=== PATIENT | female | born 1945 | race Asian ===

== ENCOUNTER 2018-01-16 16:09 | Inpatient (IN) | payer MEDICARE, BC ==
[2018-01-16 16:54] LABS: #Basophils 0.1 thou/uL (0.0-0.2); #Eosinphils 0.2 thou/uL (0.0-0.7); #Lymphocytes 1.7 thou/uL (1.20-3.40); #Monocytes 0.3 thou/uL (0.11-0.59); #Neutrophils 10.8 thou/uL (1.40-6.50); %Basophils 0.4 % (0.0-1.0); %Eosinophils 1.7 % (0.0-10.0); %Lymphocytes 12.9 % (21.0-51.0); %Monocytes 2.4 % (0.0-10.0); %Neutrophils 82.6 % (42.0-75.0); Hemoglobin 15.7 g/dL (12.0-16.0); Mean Corpuscular HGB CONC 33.8 g/dL (32.0-36.0); Mean Corpuscular Hemoglobin 28.7 pg (27.0-31.0); Mean Corpuscular Volume 84.8 fl (81.0-99.0); Mean Platelet Volume 9.1 fL (7.4-10.4); Platelet Count 205 thou/uL (130-400); RBC Distribution Width 12.3 % (11.5-14.5); Red Blood Cell (RBC) Count 5.46 mill/uL (4.20-5.40); White Blood Cell (WBC) Count 13.1 thou/uL (4.8-10.8)
[2018-01-16 17:14] LABS: ALT (SGPT) 11 U/L (8-55); AST (SGOT) 25 U/L (5-34); Albumin 4.2 g/dL (3.4-4.8); Alkaline Phosphatase 78 U/L (40-150); Anion Gap 17 mmol/L (10-20); BUN (Urea Nitrogen) 23 mg/dL (9.8-20.1); Bilirubin, Total 0.7 mg/dL (0.2-1.2); Calc. Creatinine Clearance 0 mL/min (70-130); Calcium 10.1 mg/dL (7.8-10.44); Carbon Dioxide 23 mmol/L (23-31); Chloride 104 mmol/L (98-107); Estimated GFR-MDRD 42; Globulin 4.3 g/dL (2.4-3.5); Glucose 145 mg/dL (83-110); Lipase 18 U/L (8-78); Potassium 4.5 mmol/L (3.5-5.1); Protein, Total 8.5 g/dL (6.0-8.3); Sodium 139 mmol/L (136-145)
[2018-01-16 17:18] LABS: CKMB 0.9 ng/mL (0-6.6); Troponin I Less than 0.010 ng/mL (< 0.028)
[2018-01-16] MEDS ORDERED: Ondansetron ODT 4 MG TAB ONE (17:19)
[2018-01-16] MEDS ORDERED: Pantoprazole 40 MG VIAL ONE (18:33)
[2018-01-16 18:45] LABS: Bilirubin Negative (Negative); Blood, Urine Negative (Negative); Clarity CLEAR (Clear); Glucose, Urine (Dipstick) Negative (Negative); Leukocyte Negative (Negative); Nitrite Negative (Negative); Protein, Urine (Dipstick) Trace mg/dL (Neg-Trace); Specific Gravity, Urine 1.013 (1.002-1.036); Urobilinogen 0.2 mg/dL (0.2-1.0); pH, Urine 6.5 (5.0-9.0)
[2018-01-16] MEDS ORDERED: Ondansetron HCl/PF 4 MG/2 ML Vial IVP PRN (22:03)
[2018-01-16] MEDS ORDERED: Ondansetron ODT 4 MG TAB SL PRN (22:03)
[2018-01-16] MEDS ORDERED: Promethazine HCl 12.5 MG in Sodium Chloride 0.9% 50 ML IVPB PRN (22:04)
[2018-01-16] MEDS: Sodium Chloride 0.9% 1,000 ML IV SCH (22:12)
[2018-01-16 23:07] VITALS: BMI 27.6
[2018-01-17] MEDS ORDERED: Guaifenesin DM 100-10/5 ML UDCUP PO PRN (01:50)
[2018-01-17] MEDS ORDERED: Acetaminophen 325 MG TAB PO PRN (01:50)
[2018-01-17] MEDS ORDERED: Ondansetron HCl/PF 4 MG/2 ML Vial IVP PRN (01:50)
[2018-01-17] MEDS ORDERED: Calcium Carbonate 500 MG ChewTAB PO PRN (01:50)
[2018-01-17] MEDS ORDERED: Mag-Al 1200 mg/1200 mg/30 ML UDCUP PO PRN (01:50)
[2018-01-17] MEDS ORDERED: Morphine 4 MG/ML VIAL SLOW IVP PRN (01:50)
[2018-01-17] MEDS: predniSONE 50 MG TAB PO SCH ×4 (02:22→18:08)
[2018-01-17 02:46] LABS: #Lymphocytes 3.6 thou/uL (1.20-3.40); #Monocytes 0.7 thou/uL (0.11-0.59); #Neutrophils 10.9 thou/uL (1.40-6.50); %Basophils 0.2 % (0.0-1.0); %Eosinophils 0.3 % (0.0-10.0); %Lymphocytes 23.5 % (21.0-51.0); %Monocytes 4.3 % (0.0-10.0); %Neutrophils 71.7 % (42.0-75.0); Mean Corpuscular HGB CONC 33.6 g/dL (32.0-36.0); Mean Corpuscular Hemoglobin 28.3 pg (27.0-31.0); Mean Corpuscular Volume 84.2 fl (81.0-99.0); Mean Platelet Volume 8.6 fL (7.4-10.4); Platelet Count 197 thou/uL (130-400); RBC Distribution Width 12.4 % (11.5-14.5); Red Blood Cell (RBC) Count 5.29 mill/uL (4.20-5.40); White Blood Cell (WBC) Count 15.2 thou/uL (4.8-10.8)
[2018-01-17 03:19] LABS: ALT (SGPT) 8 U/L (8-55); AST (SGOT) 19 U/L (5-34); Alkaline Phosphatase 70 U/L (40-150); Anion Gap 15 mmol/L (10-20); BUN (Urea Nitrogen) 20 mg/dL (9.8-20.1); Bilirubin, Total 0.8 mg/dL (0.2-1.2); Calc. Creatinine Clearance 50 mL/min (70-130); Calcium 9.8 mg/dL (7.8-10.44); Carbon Dioxide 23 mmol/L (23-31); Chloride 107 mmol/L (98-107); Estimated GFR-MDRD 47; Glucose 120 mg/dL (83-110); Potassium 4.6 mmol/L (3.5-5.1); Sodium 140 mmol/L (136-145)
[2018-01-17] MEDS: metroNIDAZOLE 500 MG in Premix Bag 1 BAG IVPB SCH ×3 (05:12→21:43)
--- NOTE | 2018-01-17 06:37 | HP ---
REASON FOR ADMISSION: Abdominal pain with nausea and vomiting and one episode of diarrhea, possible gastroenteritis. HISTORY OF PRESENT ILLNESS: The patient gives history of vomiting multiple times along with abdominal pain around the umbilical area. This was a 5-6/10 in intensity and progressively got worse. The patient had 3 soft stools yesterday, but no diarrhea as such, but had one episode of watery diarrhea on arrival in the ER here. She tried taking Prilosec but threw up the pill as well. She has some cough with expectoration of yellow sputum. No fever as such. The patient thinks she got upper respiratory infection from one of her grandkids who had come to visit her. PAST MEDICAL AND SURGICAL HISTORY: Hypertension, history of hysterectomy. CURRENT MEDICATIONS: Takes lisinopril 30 mg p.o. q.a.m. ALLERGIES: Allergic to SHELLFISH. PERSONAL HISTORY: Does not abuse alcohol or drugs. No history of smoking. FAMILY HISTORY: Both parents lived up to 70s and of old age. CODE STATUS: FULL. She lives with her . REVIEW OF SYSTEMS: The following complete review of systems was negative, unless otherwise mentioned in the HPI or below: Constitutional: Weight loss or gain, ability to conduct usual activities. Skin: Rash, itching. Eyes: Double vision, pain. ENT/Mouth: Nose bleeding, neck stiffness, pain, tenderness. Cardiovascular: Palpitations, dyspnea on exertion, orthopnea. Respiratory: Shortness of breath, wheezing, cough, hemoptysis, fever or night sweats. Gastrointestinal: Poor appetite, abdominal pain, heartburn, nausea, vomiting, constipation, or diarrhea. Genitourinary: Urgency, frequency, dysuria, nocturia. Musculoskeletal: Pain, swelling. Neurologic/Psychiatric: Anxiety, depression. Allergy/Immunologic: Skin rash, bleeding tendency. PHYSICAL EXAMINATION: GENERAL: The patient is a 72-year-old female who is currently not in any acute distress. VITAL SIGNS: Blood pressure 180/110, pulse 90 per minute, respiratory rate 16 per minute, temperature 98.2 degrees Fahrenheit, saturating 96% on room air. NECK: Supple, no elevated JVD. HEENT: Eyes: Extraocular muscles intact. Pupils reacting to light. Oral cavity: Mucous membranes are moist. No exudates or congestion. CARDIOVASCULAR SYSTEM: S1, S2 heard. Regular rhythm. RESPIRATORY: Air entry 1+ bilaterally. No rales or rhonchi. ABDOMEN: Abdomen is soft. There is mild tenderness around the umbilicus. No Valderrama sign. No rigidity or guarding. Bowel sounds are heard. EXTREMITIES: No peripheral edema or calf tenderness. VASCULAR SYSTEM: Peripheral pulses 1+ bilateral, no ischemic ulcerations or gangrene. CENTRAL NERVOUS SYSTEM: No gross focal deficits seen. The patient is alert, awake, oriented well. PSYCHIATRIC SYSTEM: The patient's mood is euthymic. No hallucinations or delusions. LABORATORY AND X-RAY FINDINGS: White count of 13, H and H 15 and 46, platelet count 205 with 82% neutrophils. Electrolytes are stable. BUN 23, creatinine 1.25. Serum glucose 145. Liver enzymes are within normal limits. First set of cardiac enzymes negative. Albumin is 4.2, lipase is 18. CLINICAL IMPRESSION AND PLAN: The patient will be under observation on medical floor for what appears to be gastroenteritis versus acute abdomen. The patient is allergic to SHELLFISH and is being premedicated for CT with contrast of the abdomen and pelvis. We will gently hydrate her on normal saline at 75 mL per hour. She will be on morphine p.r.n. for pain. Stool cultures will be obtained including C. diff. She will be on Cipro and Flagyl for now. Based on the CAT scan findings, further consultations will be requested. We will also obtain viral respiratory pathogen PCR in view of her current cough with expectoration of yellow sputum. Blood cultures have been obtained in the ER as well. The patient's symptoms were to get worse or if her CAT scan shows acute findings, the patient will be switched over to inpatient status. She appears to be in moderate dehydration as well with intractable nausea and vomiting. Please note I have seen and examined patient on 01/16/2018. STANLEY
[2018-01-17] MEDS: Albuterol Sulfate 2.5 mg/3 ml Neb NEB SCH ×3 (08:07→19:18)
[2018-01-17] MEDS: Famotidine 20 MG TAB PO SCH (09:10)
[2018-01-17] MEDS: Enoxaparin Sodium 40 MG/0.4 ML SYRINGE SC SCH (09:46)
--- NOTE | 2018-01-17 11:07 | PDOC.PN ---
- Subjective Encounter Start Date: 01/17/18 Encounter Start Time: 11:09 Patient seen and examined following admission for acute abdominal pain, nausea, vomiting and diarrhea. Improved today. CT abdomen pending. - Objective Resuscitation Status: Resuscitation Status FULL:Full Resuscitation Vital Signs & Weight: Vital Signs (12 hours) Temp Pulse Resp BP BP Pulse Ox 01/17/18 08:01 98.5 F 71 16 106/58 L 94 L 01/17/18 08:00 98.5 F 71 16 106/58 L 94 L 01/17/18 04:56 99.2 F 77 18 110/55 L 95 Weight Weight 155 lb I&O: 01/16/18 01/17/18 01/18/18 06:59 06:59 06:59 Intake Total 1325 Balance 1325 Result Diagrams: 01/17/18 02:30 01/17/18 02:30 Phys Exam - Physical Examination Constitutional: NAD HEENT: PERRLA, moist MMs, sclera anicteric, oral pharynx no lesions Neck: no JVD, supple, full ROM Respiratory: no wheezing, no rales, no rhonchi, clear to auscultation bilateral Cardiovascular: RRR, no significant murmur, no rub Gastrointestinal: soft, non-tender, no distention, positive bowel sounds Musculoskeletal: no edema, pulses present Neurological: non-focal, moves all 4 limbs Psychiatric: normal affect, A&O x 3 Dx/Plan (1) Acute abdominal pain Code(s): R10.9 - UNSPECIFIED ABDOMINAL PAIN Status: Acute Comment: Likely gastroenteritis. Stable. f/u CT abdomen . (2) Nausea vomiting and diarrhea Code(s): R11.2 - NAUSEA WITH VOMITING, UNSPECIFIED; R19.7 - DIARRHEA, UNSPECIFIED Status: Acute (3) PHILIP (acute kidney injury) Code(s): N17.9 - ACUTE KIDNEY FAILURE, UNSPECIFIED Status: Acute (4) HTN (hypertension) Code(s): I10 - ESSENTIAL (PRIMARY) HYPERTENSION Status: Chronic Qualifiers: Hypertension type: essential hypertension Qualified Code(s): I10 - Essential (primary) hypertension - Plan cont current plan of care, continue antibiotics, out of bed/ambulate, DVT proph w/lovenox f/u CT abdomen, stool studies Continue Hydration Review of Systems - Review of Systems Gastrointestinal: Nausea, Vomiting, Abdominal Pain, Diarrhea - Medications/Allergies Allergies/Adverse Reactions: Allergies Allergy/AdvReac Type Severity Reaction Status Date / Time shellfish derived Allergy oral Verified 01/16/18 23:26 itching, swelling Medications: Current Medications Acetaminophen (Tylenol) 650 mg PO Q4H PRN PRN Reason: Headache/Fever or Pain Al Hydroxide/Mg Hydroxide (Maalox) 30 ml PO Q6H PRN PRN Reason: Heartburn or Indigestion Albuterol Sulfate (Ventolin) 2.5 mg NEB [id number] [facility] Last Admin: 01/17/18 08:07 Dose: Not Given Calcium Carbonate (Tums) 1,000 mg PO Q4H PRN PRN Reason: Heartburn or Indigestion Diphenhydramine HCl (Benadryl) 50 mg PO 1815 [facility] Stop: 01/17/18 18:16 Enoxaparin Sodium (Lovenox) 40 mg SC 0900 [facility] Last Admin: 01/17/18 09:46 Dose: Not Given Famotidine (Pepcid) 20 mg PO DAILY [facility] Last Admin: 01/17/18 09:10 Dose: 20 mg Guaifenesin/Dextromethorphan (Robitussin Dm) 15 ml PO Q4H PRN PRN Reason: Cough Sodium Chloride (Normal Saline 0.9%) 1,000 mls @ 75 mls/hr IV .[id number] [facility] Stop: 01/19/18 08:46 Last Admin: 01/16/18 22:12 Dose: 1,000 mls Promethazine HCl 12.5 mg/ (Sodium Chloride) 50.5 mls @ 202 mls/hr IVPB Q6H PRN PRN Reason: GI-CRAMPING Stop: 01/19/18 08:46 Last Admin: 01/16/18 22:35 Dose: 50.5 mls Ciprofloxacin/Dextrose 400 mg/ (Device) 200 mls @ 200 mls/hr IVPB Q12HR [facility] Last Admin: 01/17/18 09:11 Dose: 200 mls Metronidazole 500 mg/ Device 100 mls @ 100 mls/hr IVPB Q8HR [facility] Last Admin: 01/17/18 05:12 Dose: 100 mls Morphine Sulfate (Morphine) 2 mg SLOW IVP Q4H PRN PRN Reason: Chest Pain/BP Elevations Last Admin: 01/17/18 02:27 Dose: 2 mg Ondansetron HCl (Zofran) 4 mg IVP Q6H PRN PRN Reason: Nausea/Vomiting Last Admin: 01/17/18 05:42 Dose: 4 mg Prednisone (Prednisone) 50 mg PO 1300,1815 JUS Stop: 01/17/18 18:16
[2018-01-17] MEDS: Sodium Chloride 0.9% 1,000 ML IV SCH (13:00)
[2018-01-17] MEDS ORDERED: diphenhydrAMINE 50 MG CAP PO SCH ×2 (14:00→18:15)
--- NOTE | 2018-01-17 22:23 | CT ---
CT ABDOMEN AND PELVIS WITH CONTRAST 01/17/18 COMPARISON: None. HISTORY: Abdominal pain and vomiting twice today. Patient has history of hysterectomy. TECHNIQUE: Multiple contiguous axial images were obtained in a CT of the abdomen and pelvis with contrast. P.O. contrast was administered. Coronal reformats were performed. FINDINGS: There is diffuse fatty infiltration of the liver. The gallbladder is contracted. The kidneys, adrenal glands, spleen, and pancreas are unremarkable. There are varices seen in the splenic region and ther e may be a spontaneous left splenorenal shunt. There is a small amount of free fluid in the pelvis. No free air or stranding changes are seen in the abdomen or pelvis. The larger and small bowel are normal in caliber. The appendix is normal. There is a mass-like density in the pelvis measuring approximately 4.8 cm in length. This has a means Hounsfield unit of 22 and is not consistent with simple fluid. This is immediately adjacent to the r ectum. The patient is status post hysterectomy. No abdominal or pelvic lymphadenopathy are seen. There is atelectasis in the right lung base. Degenerative changes are seen in the spine. Abdominal wa ll soft tissues are unremarkable. IMPRESSION: 1. Fatty liver. 2. Nonspecific splenic varices could suggest portal hypertension. 3. There is a mass-like opacity in the pelvis. Although this could represent free fluid, a recta l mass is also a possibility. A mass separate from the rectum within the pelvis is also a possibility . POS: [facility]
[2018-01-18] MEDS: Albuterol Sulfate 2.5 mg/3 ml Neb NEB SCH ×3 (01:17→13:14)
[2018-01-18] MEDS: metroNIDAZOLE 500 MG in Premix Bag 1 BAG IVPB SCH ×2 (05:37→15:35)
[2018-01-18] MEDS: Sodium Chloride 0.9% 1,000 ML IV SCH ×2 (05:38→15:33)
[2018-01-18 05:43] LABS: #Lymphocytes 1.3 thou/uL (1.20-3.40); #Monocytes 0.4 thou/uL (0.11-0.59); #Neutrophils 8.4 thou/uL (1.40-6.50); %Basophils 0.1 % (0.0-1.0); %Eosinophils 0.2 % (0.0-10.0); %Monocytes 4.3 % (0.0-10.0); %Neutrophils 82.4 % (42.0-75.0); Hemoglobin 11.5 g/dL (12.0-16.0); Mean Corpuscular HGB CONC 33.2 g/dL (32.0-36.0); Mean Corpuscular Hemoglobin 28.5 pg (27.0-31.0); Mean Corpuscular Volume 85.9 fl (81.0-99.0); Mean Platelet Volume 9.8 fL (7.4-10.4); Platelet Count 148 thou/uL (130-400); RBC Distribution Width 12.3 % (11.5-14.5); Red Blood Cell (RBC) Count 4.05 mill/uL (4.20-5.40); White Blood Cell (WBC) Count 10.2 thou/uL (4.8-10.8)
[2018-01-18 05:51] LABS: Anion Gap 13 mmol/L (10-20); Calc. Creatinine Clearance 54 mL/min (70-130); Calcium 8.9 mg/dL (7.8-10.44); Carbon Dioxide 25 mmol/L (23-31); Chloride 108 mmol/L (98-107); Estimated GFR-MDRD 51; Glucose 135 mg/dL (83-110); Potassium 4.1 mmol/L (3.5-5.1); Sodium 142 mmol/L (136-145)
[2018-01-18 06:47] LABS: BUN (Urea Nitrogen) 19 mg/dL (9.8-20.1)
[2018-01-18] MEDS: Famotidine 20 MG TAB PO SCH (08:16)
[2018-01-18] MEDS: Enoxaparin Sodium 40 MG/0.4 ML SYRINGE SC SCH (08:17)
--- NOTE | 2018-01-18 10:21 | RAD ---
UPRIGHT PORTABLE CHEST ONE VIEW: HISTORY: A 72-year-old female with a history of abdominal pain and cramping from CT from 01/17/2018. FINDINGS: Minimal cardiomegaly. Linear and parenchymal changes noted in the right base, evidence for subsegmen yasmeen atelectasis or chronic change. Mid and upper lung zones are clear. IMPRESSION: 1. Stable appearing linear and parenchymal changes in the right base, probably subsegmental atelecta sis or mild chronic change. 2. Minimal cardiomegaly. Depending on concern, consider another follow-up examination in several weeks, to document clearing o r stability. POS: [facility]
--- NOTE | 2018-01-18 10:24 | ULT ---
ABDOMEN ULTRASOUND: HISTORY: Varices. Cirrhosis. COMPARISON: None. TECHNIQUE: Utilizing a multihertz transducer, sonographic imaging of the abdomen is performed in the longitudina l and transverse plane. FINDINGS: Limited evaluation of the pancreas due to bowel gas. Visualized aorta has an overall normal caliber measuring 2.3 cm. Visualized IVC is unremarkable. Main portal vein is patent. Appropriate directio nal flow. Heterogeneous echotexture of the liver which may be due to hepatic steatosis or hepatocellular diseas e. Subsequent evaluation for hepatic masses and intrahepatic biliary dilatation is limited. Right h epatic lobe measures 18.4 cm. No sonographic evidence of cholelithiasis, gallbladder wall thickening, or pericholecystic fluid. Ne gative Valderrama's sign. Common bile duct diameter is 0.4 cm. Bilaterally, no hydronephrosis. Bilateral renal cortical thinning. The right kidney measures 11.1 x 4.8 x 4.4 cm. The left kidney measures 12.0 x 4.3 x 4.8 cm. The spleen is unremarkable measuring 10.8 cm in maximum dimension. IMPRESSION: Increased echogenicity of the liver which may be due to hepatic steatosis or hepatocellular disease. Subsequent evaluation for hepatic masses is limited. POS: [facility]
--- NOTE | 2018-01-18 11:24 | ULT ---
PELVIC ULTRASOUND COMPLETE INCLUDING TRANSABDOMINAL AND TRANSVAGINAL IMAGING: HISTORY: The patient has had a complete hysterectomy. Neither right or left ovaries could be demonstrated. T here is an approximately 1.7 x 2.0 x 2.6 cm diameter fluid collection in the lower pelvis which I fee l corresponds to the fluid seen on the prior CT scan of 01/17/18. No evidence for a solid mass. The bladder is nearly empty. IMPRESSION: Somewhat irregular-shaped fluid collection probably related to intraperitoneal fluid corresponding to the finding on the prior CT scan. No evidence for a solid pelvic mass. Status post hysterectomy. Neither right or left ovaries could be demonstrated. POS: [facility]
[2018-01-18 12:45] VITALS: BP 156/70; TEMP 98.9
--- NOTE | 2018-01-18 20:03 | DIS ---
DATE OF ADMISSION: 01/16/2018 DATE OF DISCHARGE: 01/17/2018 DISCHARGE DIAGNOSES: Gastroenteritis, acute bronchitis, hypertension. HISTORY OF PRESENT ILLNESS/HOSPITAL COURSE: Ms. Joao Padron is a 72-year-old female who presented to the emergency room with abdominal pain, nausea, vomiting, and 1 episode of diarrhea. The patient gave a history of multiple episodes of vomiting with periumbilical abdominal pain rated 5-6/10 and progressively getting worse, associated with three soft stools. There was also one episode of watery diarrhea on arrival to the emergency room. She tried taking Prilosec, but could not keep this down. She also reported cough with expiration of yellow sputum, but no fever. She reported that she thinks she might have gotten upper respiratory tract infection from one of her grandkids who came to visit her. Review of systems was likely unremarkable except as stated in HPI. Physical examination at this time showed elevated blood pressure of 180/110. Abdominal examination reveals soft abdomen with mild tenderness around the umbilicus. There was no Valderrama sign. No rigidity or guarding. Bowel sounds were heard and normoactive. Labs revealed a WBC of 13, hemoglobin of 15 and 46, also with elevated BUN/ creatinine 23 and 1.25, respectively. Serum glucose was 145. Liver enzymes were within normal limits and cardiac enzymes were negative. An assessment of acute abdominal pain, likely gastroenteritis versus acute abdomen was made and then she had a CT contrast which showed no major abnormalities, but showed a collection which was questionable pneumonic fluid versus mass. She further had an abdominal ultrasound which classified this as a fluid collection, likely postop. While on admission, she was placed on IV fluids with resolution of her volume depletion/dehydration. She also was placed on IV ciprofloxacin and metronidazole. Blood cultures were collected and negative. She also had nasopharyngeal swab which revealed rhinovirus Influenza A and B were negative. Patient was stable on the day of discharge, she was started on a diet and was able to tolerate. She was then discharged without incidents. DISCHARGE MEDICATIONS: Ciprofloxacin 250 mg q.12 h., guaifenesin 15 mL q.4 hours p.r.n., metronidazole 500 mg q.8 hours. PHYSICAL EXAMINATION: VITAL SIGNS: She was examined on the day of discharge, blood pressure 107/57, temperature 96.8 degree Fahrenheit, pulse rate 74, respiratory rate 18, oxygen saturation 93% on room air. GENERAL: Not in acute distress. She is sitting up comfortably in bed. HEENT: PERRLA, EOMI. Moist mucous membranes, no oral lesions. NECK: Supple, full range of movement. No JVD. RESPIRATORY: Vesicular breath sounds bilaterally. No wheezes, rales or rhonchi. CARDIOVASCULAR: S1 and S2 only with regular rate and rhythm. No murmurs, rubs or gallops. GASTROINTESTINAL: Soft, nontender, nondistended with positive bowel sounds. No hepatosplenomegaly. EXTREMITIES: No edema. Moves all extremities spontaneously. NEUROLOGIC: Alert and well oriented to time, place and person. No focal deficit. PSYCHIATRIC: Normal mood and affect. LABORATORY DATA: WBC 10.2, hemoglobin 11.5, platelet count of 148,000. Sodium 142, potassium 4.1, chloride 108, negative 25, anion gap 13, BUN 19, creatinine 1.07, glucose 135, calcium 8.9. IMAGING: CT abdomen, pelvis/renal ultrasound and chest x-ray. In addition, the patient was given 3 doses of steroids and premedicated due to her SHELLFISH allergy for her CT scan. In addition, she also had an acute kidney injury which resolved with hydration. PROCEDURES: None. DIET: Heart healthy. CARE GOALS: Encouraged to take medications as prescribed. She is to follow up with her primary care physician within 2 week of discharge. She was instructed to return to the emergency room if she saw further recurrence of abdominal pain , nausea, vomiting, diarrhea, fevers. ACTIVITY: Resume as tolerated. DISCHARGE TIME: 65 minutes including chart review and documentation. [facility]ITAL[facility]
[2018-01-18] MEDS ORDERED: Famotidine 20 MG TAB PO SCH (21:00)
--- NOTE | 2018-01-19 18:29 | PQF ---
LIA TREJO CURT URBANO [id number] CLINICAL DOCUMENTATION CLARIFICATION FORM: POST DISCHARGE Addendum to original discharge summary date: ____ Late entry note date: __ DATE: 01/19/18 ATTN: Please exercise your independent, professional judgment in responding to the clarification form. Clinical indicators are provided on the bottom of this form for your review Diagnosis: Acute Bronchitis Present on Admission (POA): [x ] Yes [ ] No [ ] Unable to determine [ ] Other Coding guidelines require hospitals to identify whether a diagnosis was present on admission (POA) or not. To accurately assign the appropriate POA indicator, this information must be clearly documented within the medical record. CLINICAL INDICATORS - SIGNS / SYMPTOMS / LABS Documentation to support POA status Cough, Yello sputnum RISK FACTORS: Documentation to support POA status PHILIP, Dehydration, Gastroenteritis TREATMENT: Documentation to support POA status Antibiotics (This form is maintained as a part of the permanent medical record) 2014 [employer]. All Rights Reserved [email or web address] [phone] [email or web address]
== END 2018-01-18 18:10 | disposition home or self-care (01) | DRG 684 ==
LOC: ERS 16:09 → ONC 20:30 → OBSVTOIN 01-17 23:40
PROVIDERS: ADMIT Emergency Medicine; ATTEND Emergency Medicine
DX: N17.9 Acute kidney failure, unspecified (principal); J20.9 Acute bronchitis, unspecified; E86.0 Dehydration; K52.9 Noninfective gastroenteritis and colitis, unspecified; I10 Essential (primary) hypertension; Z79.899 Other long term (current) drug therapy; Z91.013 Allergy to seafood
CPT/HCPCS: 36415; 71045; 74177; 76700; 76857; 80048; 80053; 81003; 82553; 83690; 84484; 85025; 87040; 87045; 87046; 87081; 87086; 87324; 87449; 87633; 87899; 94640; 96361; 96374; C9113; J0744; J1650; J2270; J2405; J2550; J7050; J7611; Q0162

== ENCOUNTER 2019-08-09 08:39 | Outpatient (CLI) | payer MEDICARE, BC ==
--- NOTE | 2019-08-09 11:25 | RAD ---
BIPHASIC ESOPHAGRAM: HISTORY: A 74-year-old female with globus sensation and epigastric pain. FINDINGS: Swallowing was grossly normal. There is an obstructed flow of contrast through the esophagus, into th e stomach. No ulcer, stricture, mass or diverticulum is seen. Mild tertiary contractions were noted. A 12 mm tablet passed promptly from the esophagus into the stomach without stasis. No GE reflux was d emonstrated during the Valsalva maneuver. IMPRESSION: Presbyesophagus. POS: [facility]
== END 2019-08-09 08:40 | disposition home or self-care (01) ==
LOC: RAD 08:39
PROVIDERS: ATTEND Internal Medicine
DX: F45.8 Other somatoform disorders (principal); R10.13 Epigastric pain; K22.8 Other specified diseases of esophagus
CPT/HCPCS: 74220

== ENCOUNTER 2021-01-30 10:11 | Outpatient (CLI) | payer MEDICARE, BC | END 2021-01-30 10:12 | disposition home or self-care (01) | LOC: BICMAMMO 10:11 | PROVIDERS: ATTEND Family Medicine | DX: Z12.31 Encounter for screening mammogram for malignant neoplasm of breast (principal); M40.204 Unspecified kyphosis, thoracic region; K21.9 Gastro-esophageal reflux disease without esophagitis; M47.814 Spondylosis without myelopathy or radiculopathy, thoracic region | CPT/HCPCS: 72072; 77063; 77067 ==

== ENCOUNTER 2022-07-09 10:59 | Outpatient (CLI) | payer MEDICARE, BC | END 2022-07-09 11:00 | disposition home or self-care (01) | LOC: BICMAMMO 10:59 | PROVIDERS: ATTEND Family Medicine | DX: Z12.31 Encounter for screening mammogram for malignant neoplasm of breast (principal); N63.15 Unspecified lump in the right breast, overlapping quadrants | CPT/HCPCS: 77063; 77067 ==

== ENCOUNTER 2023-09-02 09:00 | Outpatient (CLI) | payer MEDICARE | END 2023-09-02 09:01 | disposition home or self-care (01) | LOC: BICMAMMO 09:00 | PROVIDERS: ATTEND Internal Medicine Hematology & Oncology | DX: Z08 Encounter for follow-up examination after completed treatment for malignant neoplasm (principal); Z85.3 Personal history of malignant neoplasm of breast | CPT/HCPCS: 77066; G0279 ==

== ENCOUNTER 2024-02-15 09:56 | Outpatient (CLI) | payer MEDICARE | END 2024-02-15 09:57 | disposition home or self-care (01) | LOC: BICRAD 09:56 | PROVIDERS: ATTEND Family Medicine | DX: J45.991 Cough variant asthma (principal); J44.9 Chronic obstructive pulmonary disease, unspecified; I51.7 Cardiomegaly | CPT/HCPCS: 71046 ==

== ENCOUNTER 2024-05-17 09:48 | Outpatient (CLI) | payer MEDICARE | END 2024-05-17 09:49 | disposition home or self-care (01) | LOC: RAD 09:48 | PROVIDERS: ATTEND Internal Medicine Critical Care Medicine | DX: R06.00 Dyspnea, unspecified (principal); I51.7 Cardiomegaly | CPT/HCPCS: 71046 ==

== ENCOUNTER 2024-07-30 09:33 | Outpatient (CLI) | payer MEDICARE | END 2024-07-30 09:34 | disposition home or self-care (01) | LOC: RAD 09:33 | PROVIDERS: ATTEND Internal Medicine Critical Care Medicine | DX: R06.00 Dyspnea, unspecified (principal); I51.7 Cardiomegaly | CPT/HCPCS: 71046 ==

== ENCOUNTER 2024-08-07 11:34 | Outpatient (CLI) | payer MEDICARE | END 2024-08-07 11:35 | disposition home or self-care (01) | LOC: BICCT 11:34 | PROVIDERS: ATTEND Internal Medicine Critical Care Medicine | DX: R91.1 Solitary pulmonary nodule (principal); I51.7 Cardiomegaly | CPT/HCPCS: 71250 ==

== ENCOUNTER 2024-09-04 08:55 | Outpatient (CLI) | payer MEDICARE | END 2024-09-04 08:56 | disposition home or self-care (01) | LOC: BICMAMMO 08:55 | PROVIDERS: ATTEND Internal Medicine Hematology & Oncology | DX: Z08 Encounter for follow-up examination after completed treatment for malignant neoplasm (principal); Z85.3 Personal history of malignant neoplasm of breast; Z98.890 Other specified postprocedural states | CPT/HCPCS: 77066; G0279 ==